=== PATIENT | female | born 1950 | race Caucasian/White ===

== ENCOUNTER → 2016-11-17 | Outpatient (CLI) | payer OTHER, BC ==
[2016-11-17 08:34] LABS: BLOOD UREA NITROGEN 19 mg/dL (7-22); BUN/CREATININE RATIO 27.14 (6-20); CALCIUM 9.6 mg/dL (8.7-10.7); EST GLOMERULAR FILTRATION > 60 (>60 ml/min/1.73m(2))
== END ==
LOC: LAB 07:59
PROVIDERS: ATTEND Psychiatry & Neurology Neurology
DX: G40.009 Localization-related (focal) (partial) idiopathic epilepsy and epileptic syndromes with seizures of localized onset, not intractable, without status epilepticus (principal)
CPT/HCPCS: 36415; 80048; 80156

== ENCOUNTER 2019-04-17 07:47 | Observation (INO) ==
[~2019-04-17 07:47] MED LIST: ACETAMINOPHEN 500 MG TABLET PO ONE; BUPivacaine Inj 0.25% PF - 10ml vial ONE; CELECOXIB 200 MG CAPSULE PO ONE; EPINEPHrine Inj (1:1,000) 30mg/30ml vial ONE; GABAPENTIN 300 MG CAPSULE PO ONE; LIDOCAINE W/ SODIUM BICARB 0.5 ML SYR ONE; LIDOCAINE W/ SODIUM BICARB 0.5 ML SYR SUBD ONE; Lactated Ringers 1,000 ML PRIMARY IV ONE; Nasal Sanitizer POPSWAB ampule 3 AMP (Nozin) PREOP DOSE ENOS SCH; PANTOPRAZOLE 20 MG TABLET.DR PO ONE; ceFAZolin Inj 2gm (Premix) 2 GM/50 ML BAG IV ONE
[2019-04-17] MEDS: Lactated Ringers 1,000 ML PRIMARY IV SCH ×2 (10:09→19:15)
[2019-04-17] MEDS ORDERED: fentaNYL Inj 100 MCG/2 ML VIAL ONE (11:13)
[2019-04-17] MEDS ORDERED: MIDAZOLAM HCL 2 MG/2 ML VIAL ONE (11:14)
[2019-04-17] MEDS ORDERED: BUPivacaine Liposome/PF (Exparel) Inj 20ml vial INFIL ONE (11:15)
[2019-04-17] MEDS ORDERED: LIDOCAINE MPF 2% - 5 ML (20 MG/1 ML) ONE (11:15)
[2019-04-17] MEDS ORDERED: ROCURONIUM 10 MG/1 ML - 5 ML VIAL IVP ONE (11:15)
[2019-04-17] MEDS ORDERED: PROPOFOL 10 MG/1 ML (200 MG/20 ML) VIAL IV ONE (11:16)
[2019-04-17] MEDS ORDERED: ONDANSETRON 4 MG/2 ML VIAL ONE (11:16)
[2019-04-17] MEDS ORDERED: BUPivacaine Inj 0.5% PF (5mg/ml) 30ml vial ONE (11:16)
[2019-04-17] MEDS ORDERED: KETOROLAC 30 MG/1 ML VIAL ONE ×2 (11:16→14:51)
[2019-04-17] MEDS ORDERED: BUPivacaine Inj 0.5% PF (5mg/ml) 10ml vial ONE (13:31)
[2019-04-17] MEDS ORDERED: BETAMET ACET/BETAMET NA PH 6 MG/1 ML - 5 ML ONE (13:31)
[2019-04-17] MEDS ORDERED: SUGAMMADEX SODIUM 200 MG/2 ML VIAL IV ONE (13:33)
[2019-04-17] MEDS ORDERED: KETOROLAC 15 MG/1 ML VIAL IVP PRN (13:55)
[2019-04-17] MEDS ORDERED: ONDANSETRON 4 MG/2 ML VIAL IVP PRN ×3 (13:55→19:24)
[2019-04-17] MEDS ORDERED: HYDROcodone-APAP 7.5 MG-325 MG TABLET PO PRN (13:55)
[2019-04-17] MEDS ORDERED: HYDROmorphone 2 MG/1 ML IVP PRN (13:58)
[2019-04-17] MEDS ORDERED: Meperidine Inj 50 MG/ML CARPUJECT IVP PRN (13:58)
[2019-04-17] MEDS ORDERED: fentaNYL Inj 100 MCG/2 ML VIAL IVP PRN (13:58)
[2019-04-17] MEDS ORDERED: MORPHINE SULFATE 2 MG/1 ML IVP PRN (13:58)
[2019-04-17] MEDS ORDERED: LIDOCAINE W/ SODIUM BICARB 0.5 ML SYR SUBD PRN ×2 (13:58→17:51)
[2019-04-17] MEDS ORDERED: Ondansetron ODT Tab 8 MG TAB PO PRN (13:58)
[2019-04-17] MEDS ORDERED: Lactated Ringers 1,000 ML PRIMARY IV SCH (14:00)
[2019-04-17] MEDS ORDERED: KETOROLAC 30 MG/1 ML VIAL IVP ONE (14:48)
[2019-04-17] MEDS ORDERED: CALCIUM CARBONATE 500 MG (TUMS) CHEWABLE TABLET PO PRN ×2 (17:51→19:24)
[2019-04-17] MEDS ORDERED: NITROGLYCERIN 0.4 MG SL TAB (BOTTLE OF 3) SL PRN (17:51)
[2019-04-17] MEDS: METOPROLOL SUCCINATE 50 MG SR 24H TABLET PO SCH (19:22)
[2019-04-17] MEDS: Montelukast Tab 10 MG TAB PO SCH (19:22)
[2019-04-17] MEDS ORDERED: DOCUSATE 100 MG CAPSULE PO PRN (19:24)
[2019-04-17] MEDS ORDERED: MAGNESIUM 400 MG/5 ML - 30 ML (MILK OF MAGNESIA) PO PRN (19:24)
[2019-04-17] MEDS ORDERED: diphenhydrAMINE 25 MG CAPSULE PO PRN (19:24)
[2019-04-17] MEDS ORDERED: CARBAMAZEPINE 200 MG PO SCH (21:00)
[2019-04-17] MEDS: CARBAMAZEPINE 200 MG PO SCH (21:20)
[2019-04-17] MEDS: HYDROcodone-APAP 7.5 MG-325 MG TABLET PO PRN (21:20)
[2019-04-17] MEDS: FAMOTIDINE 20 MG TABLET PO SCH (21:20)
[2019-04-18] MEDS: HYDROcodone-APAP 7.5 MG-325 MG TABLET PO PRN ×4 (04:32→20:05)
[2019-04-18] MEDS: LEVOTHYROXINE 25 MCG TABLET PO SCH (04:32)
[2019-04-18 05:34] LABS: BLOOD UREA NITROGEN 22 mg/dL (7-22); CHOL/HDL RATIO 3.21 RATIO (0-4.0); SERUM ALBUMIN 4.2 g/dL (3.5-4.8)
[2019-04-18] MEDS: FLUTICASONE PROPIONATE 16 GRAM (120 SPRAYS / BOTTLE) ENOS SCH (09:42)
[2019-04-18] MEDS: FAMOTIDINE 20 MG TABLET PO SCH ×2 (09:42→20:04)
[2019-04-18] MEDS: Montelukast Tab 10 MG TAB PO SCH (09:42)
[2019-04-18] MEDS: ASPIRIN 81 MG (BABY) CHEWABLE TABLET PO SCH (09:42)
[2019-04-18] MEDS: LORATADINE 10 MG TABLET PO SCH (09:43)
[2019-04-18] MEDS: CARBAMAZEPINE 200 MG PO SCH ×2 (09:43→20:03)
[2019-04-18] MEDS: METOPROLOL SUCCINATE 50 MG SR 24H TABLET PO SCH (10:15)
[2019-04-18] MEDS ORDERED: METOPROLOL SUCCINATE 50 MG SR 24H TABLET PO SCH (21:00)
[2019-04-19] MEDS: HYDROcodone-APAP 7.5 MG-325 MG TABLET PO PRN ×3 (03:19→16:15)
[2019-04-19] MEDS: LEVOTHYROXINE 25 MCG TABLET PO SCH (04:53)
[2019-04-19] MEDS: CARBAMAZEPINE 200 MG PO SCH (10:12)
[2019-04-19] MEDS: FAMOTIDINE 20 MG TABLET PO SCH (10:12)
[2019-04-19] MEDS: Montelukast Tab 10 MG TAB PO SCH (10:12)
[2019-04-19] MEDS: LORATADINE 10 MG TABLET PO SCH (10:12)
[2019-04-19] MEDS: ASPIRIN 81 MG (BABY) CHEWABLE TABLET PO SCH (10:12)
[2019-04-19] MEDS: FLUTICASONE PROPIONATE 16 GRAM (120 SPRAYS / BOTTLE) ENOS SCH (10:13)
[2019-04-19 13:09] VITALS: BP 149/79; RESP 17; TEMP 98
[2019-04-19 15:30] VITALS: O2SAT 92
== END 2019-04-19 16:25 | disposition home or self-care (01) ==
LOC: OR 07:47 → MED/SURG 07:47 → OPS 07:48
PROVIDERS: ADMIT Internal Medicine; ATTEND Orthopaedic Surgery